=== PATIENT | male | born 1955 | race Caucasian/White ===

== ENCOUNTER 2018-06-07 16:18 | Emergency (ER) | payer OTHER ==
[~2018-06-07] VITALS: Ht 180.3 cm; Wt 74.8 kg
[2018-06-07] MEDS ORDERED: CLINDAMYCIN 600MG/D5W 50ML 50 ML IV SCH (16:30)
[2018-06-07 18:05] VITALS: BP 132/70
== END 2018-06-07 18:07 | disposition home or self-care (01) ==
LOC: FSED 16:18
DX: M79.642 Pain in left hand (principal); L03.114 Cellulitis of left upper limb
CPT/HCPCS: 80053; 85025; 96374; 99284